=== PATIENT | female | born 1965 | race Hispanic/Latino ===

== ENCOUNTER 2021-03-09 18:22 | Emergency (ER) | payer BC, OTHER ==
[~2021-03-09] VITALS: Ht 157.5 cm; Wt 88.5 kg
[2021-03-09 18:38] VITALS: BP 137/74
[2021-03-09] MEDS ORDERED: TETANUS/DIPHTHERIA TOXOID [ADULT] 0.5 ML VIAL IM ONE ×2 (19:00→20:00)
[2021-03-09] MEDS ORDERED: CEPHALEXIN 500 MG CAPSULE PO SCH (19:00)
[2021-03-09] MEDS ORDERED: CEPH500B PO (19:38)
[2021-03-09 19:40] VITALS: BP 137/74
== END 2021-03-09 19:55 | disposition home or self-care (01) ==
LOC: EDH 18:22
DX: S61.214A Laceration without foreign body of right ring finger without damage to nail, initial encounter (principal); Z79.899 Other long term (current) drug therapy; W26.9XXA Contact with unspecified sharp object(s), initial encounter; Y93.89 Activity, other specified; Y92.89 Other specified places as the place of occurrence of the external cause; Y99.8 Other external cause status
CPT/HCPCS: 12002; 73140; 90471; 90714

== ENCOUNTER 2021-03-16 14:42 | Emergency (ER) | payer OTHER ==
[~2021-03-16] VITALS: Ht 157.5 cm; Wt 88.5 kg
[~2021-03-16 14:42] MED LIST: CEPH500B PO
[2021-03-16 14:43] VITALS: BP 133/79
== END 2021-03-16 16:12 | disposition home or self-care (01) ==
LOC: EDH 14:42
DX: S61.214D Laceration without foreign body of right ring finger without damage to nail, subsequent encounter (principal); X58.XXXD Exposure to other specified factors, subsequent encounter
CPT/HCPCS: 99281